=== PATIENT | male | born 1950 | race Hispanic/Latino ===

== ENCOUNTER 2021-06-13 05:52 | Observation (INO) | payer BC, MEDICARE ==
[2021-06-11 13:07] LABS: BASOPHILS # (AUTO) 0.1 (0.0-0.1); BASOPHILS % 1.1 % (0.0-1.0); EOSINOPHILS # (AUTO) 0.2 (0.0-0.4); HEMOGLOBIN 15.9 g/dL (12.0-16.0); LYMPHOCYTES # (AUTO) 2.2 (1.0-3.2); LYMPHOCYTES % 26.8 % (18.0-39.1); MEAN CORPUSCULAR HEMOGLOBIN 32.1 pg (28-32); MEAN CORPUSCULAR HGB CONC 33.8 g/dL (31-35); MEAN CORPUSCULAR VOLUME 94.9 fL (81-99); MONOCYTES # (AUTO) 0.6 (0.2-0.8); MONOCYTES % 7.3 % (4.4-11.3); NEUTROPHILS # (AUTO) 4.9 (2.1-6.9); NEUTROPHILS % 61.1 % (38.7-80.0); PLATELET COUNT 196 x10e3/uL (140-360); RED BLOOD COUNT 4.95 x10e6/uL (3.6-5.1); RED CELL DISTRIBUTION WIDTH 12.7 % (11.7-14.4)
[2021-06-11 13:19] LABS: INR 0.92; PROTHROMBIN TIME 13.2 seconds (11.9-14.5)
[2021-06-11 13:20] LABS: PARTIAL THROMBOPLASTIN TIME 24.1 seconds (23.8-35.5)
[2021-06-11 13:24] LABS: ANION GAP 14.4 mmol/L (8-16); CALCIUM 9.8 mg/dL (8.4-10.2); CREATININE, SERUM 0.95 mg/dL (0.57-1.11); POTASSIUM 5.4 mmol/L (3.5-5.1)
[~2021-06-13] VITALS: Ht 177.8 cm; Wt 78.5 kg
[~2021-06-13 05:52] MED LIST: JARDIANCE10 MG PO; LISINOPRIL5 MG PO; METFORMIN HCL850 MG PO
[2021-06-13] MEDS ORDERED: SODIUM CHLORIDE 0.9% 50ML 100 ML ONE (06:30)
[2021-06-13] MEDS ORDERED: THROMBIN FOR SOLN 5,000 UNIT VIAL ONE (06:55)
[2021-06-13] MEDS ORDERED: Vancomycin IV 1 GM VIAL ONE (06:55)
[2021-06-13] MEDS ORDERED: LIDOCAINE 1% W/EPINEPHRINE 20 ML VIAL ONE (06:55)
[2021-06-13] MEDS ORDERED: HYDROCODON-ACE1 EA12 PO (08:58)
[2021-06-13] MEDS ORDERED: MORPHINE SULFATE 5 MG/ML VIAL IM PRN (09:00)
[2021-06-13] MEDS ORDERED: PROMETHAZINE HCL (IM) 25 MG/ML VIAL IM PRN (09:00)
[2021-06-13] MEDS ORDERED: ACETAMINOPHEN 325 MG TAB PO PRN (09:00)
[2021-06-13] MEDS: EMPAGLIFLOZIN 10 MG TABLET PO SCH (09:00)
[2021-06-13] MEDS ORDERED: HYDROMORPHONE 2MG/ML 2 MG/ML ML IV PRN (09:00)
[2021-06-13] MEDS ORDERED: CARISOPRODOL 350 MG TAB PO PRN (09:00)
[2021-06-13] MEDS ORDERED: MAGNESIUM/ALUMINUM/SIMETHICONE 30 ML UDC PO PRN (09:00)
[2021-06-13] MEDS ORDERED: ONDANSETRON HCL INJ 2MG/ML 2ML 2 MG/ML VIAL IV PRN (09:00)
[2021-06-13] MEDS ORDERED: FENTANYL CITRATE/PF 100MCG/2 ML INJ ONE ×2 (09:32→17:20)
[2021-06-13 10:21] VITALS: BP 126/74
[2021-06-13 10:23] VITALS: BP 126/74
[2021-06-13] MEDS: LACTATED RINGER'S 1,000 ML IV SCH ×2 (12:00→15:30)
[2021-06-13] MEDS: OXYCODONE/ACETAMINOPHEN 5-325 1 EACH TABLET PO PRN (15:20)
[2021-06-13 16:00] VITALS: BP 122/65
[2021-06-13] MEDS: Cefazolin 1 GM in SODIUM CHLORIDE 0.9% 50ML 50 ML IV SCH (16:00)
[2021-06-13] MEDS ORDERED: METFORMIN HCL 850 MG TAB PO SCH (17:00)
[2021-06-13] MEDS ORDERED: MIDAZOLAM HCL 2 MG/2 ML VIAL ONE (17:20)
[2021-06-13] MEDS ORDERED: DEXAMETHASONE SOD PHOS INJ 4 MG/ML SDV ONE (17:37)
[2021-06-13] MEDS ORDERED: SEVOFLURANE INHAL SOLN 250 ML PEN BTL ONE (17:37)
[2021-06-13] MEDS ORDERED: NEOSTIGMINE 1 MG/ML 10ML VIAL ONE (17:37)
[2021-06-13] MEDS ORDERED: ROCURONIUM BROMIDE 10 MG/ML 5ML VIAL IV ONE (17:37)
[2021-06-13] MEDS ORDERED: PROPOFOL IV EMULSION 10 MG/ML 20 ML VIAL ONE (17:37)
[2021-06-13] MEDS ORDERED: POVIDONE IODINE 0.05% 0.05 % ML PO ONE (17:37)
[2021-06-13] MEDS ORDERED: ATROPINE SULFATE 1 MG/ML VIAL ONE (17:37)
[2021-06-13] MEDS ORDERED: LIDOCAINE HCL 2% LOCAL INJ 5 ML SDV VIAL INJ ONE (17:37)
[2021-06-13] MEDS ORDERED: KETOROLAC TROMETHAMINE 30 MG/ML VIAL ONE (17:37)
[2021-06-13] MEDS ORDERED: ONDANSETRON HCL INJ 2MG/ML 2ML 2 MG/ML VIAL ONE (17:37)
[2021-06-13] MEDS ORDERED: LABETALOL HCL 5 MG/ML 20ML VIAL ONE (17:37)
[2021-06-13 20:00] VITALS: BP 128/65
[2021-06-13] MEDS ORDERED: ZOLPIDEM TARTRATE 5 MG TAB PO PRN (21:00)
[2021-06-13] MEDS ORDERED: LISINOPRIL 2.5 MG TAB PO SCH (21:00)
[2021-06-14] VITALS: BP 131/67
[2021-06-14 04:02] VITALS: BP 119/74
[2021-06-14] MEDS: LACTATED RINGER'S 1,000 ML IV SCH (06:09)
[2021-06-14] MEDS: OXYCODONE/ACETAMINOPHEN 5-325 1 EACH TABLET PO PRN (07:25)
[2021-06-14 08:00] VITALS: BP 118/74
[2021-06-14 08:04] VITALS: BP 118/74
[2021-06-14] MEDS: EMPAGLIFLOZIN 10 MG TABLET PO SCH (09:08)
[2021-06-14] MEDS: Cefazolin 1 GM in SODIUM CHLORIDE 0.9% 50ML 50 ML IV SCH ×3 (09:08)
== END 2021-06-14 10:47 | disposition home or self-care (01) ==
LOC: OR 05:52 → EDSEX 07:30 → PACU V 09:22 → MED/SURG 10:21
PROVIDERS: ADMIT Neurological Surgery; ATTEND Neurological Surgery
DX: M50.122 Cervical disc disorder at C5-C6 level with radiculopathy (principal); E11.9 Type 2 diabetes mellitus without complications; I10 Essential (primary) hypertension; Z79.84 Long term (current) use of oral hypoglycemic drugs; Z01.810 Encounter for preprocedural cardiovascular examination; Z01.812 Encounter for preprocedural laboratory examination; Z01.818 Encounter for other preprocedural examination; Z20.822 Contact with and (suspected) exposure to COVID-19
CPT/HCPCS: 20931; 22551; 22845; 36415 ×3; 71046; 72040; 80048; 82948 ×2; 84132; 85025; 85610; 85730; 86850; 86900; 88304; 88311; 93005; C1713 ×2; G0378 ×2; J0461; J0690 ×2; J1100; J1170; J1885; J2001; J2250; J2405; J2704; J2710; J3010; J3370; J3490; J7121; U0002; 76000

== ENCOUNTER → 2021-07-11 | Outpatient (CLI) | payer BC ==
[~2021-07-11] MED LIST changes: +HYDROCODON-ACE1 EA12 PO
== END ==
LOC: RAD 12:25
PROVIDERS: ATTEND Neurological Surgery
DX: M50.20 Other cervical disc displacement, unspecified cervical region (principal); M43.22 Fusion of spine, cervical region
CPT/HCPCS: 72050

== ENCOUNTER → 2021-12-30 | Outpatient (CLI) | payer BC | LOC: RAD 11:36 | PROVIDERS: ATTEND Neurological Surgery | DX: M50.20 Other cervical disc displacement, unspecified cervical region (principal); M43.22 Fusion of spine, cervical region | CPT/HCPCS: 72050 ==